=== PATIENT | female | born 1985 | race Caucasian/White ===

== ENCOUNTER 2021-07-13 12:26 | Emergency (ER) | payer OTHER ==
[2021-07-13] MEDS ORDERED: Pepcid 20 MG VIAL IV ONE ×2 (12:45→12:51)
[2021-07-13] MEDS ORDERED: PROTONIX 40 MG IV IV ONE ×2 (12:45→12:51)
[2021-07-13] MEDS ORDERED: Sodium Chloride 0.9% 1000 ML 1,000 ML IV STA (12:45)
[2021-07-13] MEDS ORDERED: Zofran 4 MG/2 ML VIAL IV ONE (12:45)
[2021-07-13 12:47] VITALS: O2SAT 98
[2021-07-13] MEDS ORDERED: Sodium Chloride 0.9% 1000 ML 1,000 ML ONE (12:51)
[2021-07-13] MEDS ORDERED: Zofran 4 MG/2 ML VIAL ONE (12:51)
--- NOTE | 2021-07-13 12:53 | ERPHSYRPT ---
- History of Present Illness Time Seen by Provider: 07/13/21 12:49 Historian: patient Exam Limitations: no limitations Patient Subjective Stated Complaint: Pt states that she has ulcers in her stomach and she began having pain about 3 days ago and began vomiting blood yest erday Triage Nursing Assessment: Pt drove self to the ER, bradycardia, rates epigastric pain as 8/10, 0.5 cm laceration to the chin from a utility knife, last vomited this AM, skin n/w/d, pulses normal, last intake 1800 yesterday, last bm around 1000 today, doesn't appear to be in any distress Physician History: c/o abdominal pain in epigastric area for 2-3 days with some blood in her vomiting. Pt states that she has ulcers in her stomach and she began having pain about 3 days ago and began vomiting blood yesterday. Patient was at [facility] emergency room where she has to wait for 3 to 4 hours because the emergency room was full so she left without being seen. While she is getting her hospital bed and she had a helga on her chin and has a very small laceration on her chin which is vertical superficial. Timing/Duration: day(s) (three days) Activities at Onset: none Quality: aching, burning Abdominal Pain Onset Location: epigastric Pain Radiation: no radiation Severity of Pain-Max: mild Severity of Pain-Current: moderate Modifying Factors: Improves With: nothing Associated Symptoms: heartburn, nausea, vomiting Allergies/Adverse Reactions: No Known Drug Allergies Allergy (Verified 07/13/21 12:47) Home Medications: Ondansetron ODT 4 MG [Zofran Odt 4 mg] 4 mg SL UD PRN 07/13/21 [History] estradioL [Estradiol] 2 mg PO DAILY 07/13/21 [History] Travel Risk - International Travel Have you traveled outside of the country in past 3 weeks: No - Coronavirus Screening Are you exhibiting any of the following symptoms?: No Close contact with a COVID-19 positive Pt in past 14-21 Days: No - Vaccine Status Have you recieved a Covid-19 vaccination: Yes [employer]: Agolo - Vaccination Dates Date of 2cond Vaccination (if applicable): 07/2021 - Review of Systems Constitutional: No Fever, No Chills Eyes: No Symptoms Ears, Nose, & Throat: No Symptoms Respiratory: No Cough, No Dyspnea Cardiac: No Chest Pain, No Edema, No Syncope Abdominal/Gastrointestinal: Abdominal Pain, Nausea, Vomiting, Hematemesis, No Diarrhea Genitourinary Symptoms: No Dysuria Musculoskeletal: No Back Pain, No Neck Pain Skin: No Rash Neurological: No Dizziness, No Focal Weakness, No Sensory Changes Psychological: No Symptoms Endocrine: No Symptoms All Other Systems: Reviewed and Negative - Past Medical History Pertinent Past Medical History: Yes GI Medical History: Ulcer Other Medical History: hepatitis A - Past Surgical History Past Surgical History: Yes Female Surgical History: Hysterectomy, Tubal Ligation Other Surgical History: tummy tuck - Social History Smoking Status: Current every day smoker Exposure to second hand smoke: Yes Drug Use: marijuana Patient Lives Alone: No - Female History Hx Now: No - Nursing Vital Signs Nursing Vital Signs: Initial Vital Signs Temperature 97.9 F 07/13/21 12:35 Pulse Rate 52 L 07/13/21 12:35 Blood Pressure 122/62 07/13/21 12:35 O2 Sat by Pulse Oximetry 98 07/13/21 12:35 Pain Scale Pain Intensity 8 - Physical Exam General Appearance: no apparent distress, alert Eye Exam: PERRL/EOMI, eyes nml inspection Ears, Nose, Throat Exam: normal ENT inspection, pharynx normal, moist mucous membranes, other (1 cm vertical superficial laceration on chin. no bleeding) Neck Exam: normal inspection, non-tender, supple, full range of motion Respiratory Exam: normal breath sounds, lungs clear, No respiratory distress Cardiovascular Exam: regular rate/rhythm, normal heart sounds Gastrointestinal/Abdomen Exam: soft, No tenderness, No mass Back Exam: normal inspection, normal range of motion, No CVA tenderness, No vertebral tenderness Extremity Exam: normal inspection, normal range of motion, pelvis stable Neurologic Exam: alert, oriented x 3, cooperative, normal mood/affect, nml cerebellar function, sensation nml, No motor deficits Skin Exam: normal color, warm, dry SpO2: 98 Procedures - Laceration/Wound Repair Left Time of Procedure: 12:53 Wound Location: face (chin) Wound Length (cm): 1 Wound's Depth, Shape: superficial Wound Explored: clean Irrigated: Yes Hibiclens Prep: Yes Wound Repaired With: Steri-strips, Dermabond - Course Nursing assessment & vital signs reviewed: Yes Ordered Tests: Active Orders 24 hr Category Date Time Status KUB Stat Exams 07/13/21 12:45 Taken AMYLASE Stat Lab 07/13/21 12:47 Completed CBC W DIFF Stat Lab 07/13/21 12:41 Completed CMP Stat Lab 07/13/21 12:47 Completed HCG,QUALITATIVE URINE Stat Lab 07/13/21 12:47 Completed LIPASE Stat Lab 07/13/21 12:47 Completed UA W/RFX UR CULTURE Stat Lab 07/13/21 12:47 Completed Medication Summary Generic Name Dose Route Start Last Admin Trade Name Freq PRN Reason Stop Dose Admin Sodium Chloride 1,000 mls @ 999 mls/hr 07/13/21 12:45 07/13/21 13:00 Sodium Chloride 0.9% 1000 Ml IV 07/13/21 13:45 999 mls/hr .Q1H1M STA Administration Discontinued Medications Generic Name Dose Route Start Last Admin Trade Name Freq PRN Reason Stop Dose Admin Famotidine 20 mg 07/13/21 12:45 07/13/21 13:00 Pepcid 20 Mg Vial IV 07/13/21 12:46 20 mg STAT ONE Administration Famotidine Confirm 07/13/21 12:51 Pepcid 20 Mg Vial Administered 07/13/21 12:52 Dose 20 mg IV .STK-MED ONE Sodium Chloride Confirm 07/13/21 12:51 Sodium Chloride 0.9% 1000 Ml Administered 07/13/21 12:52 Dose 1,000 mls @ ud .ROUTE .STK-MED ONE Ondansetron HCl 4 mg 07/13/21 12:45 07/13/21 13:00 Zofran 4 Mg/2 Ml Vial IV 07/13/21 12:46 4 mg STAT ONE Administration Ondansetron HCl Confirm 07/13/21 12:51 Zofran 4 Mg/2 Ml Vial Administered 07/13/21 12:52 Dose 4 mg .ROUTE .STK-MED ONE Pantoprazole Sodium 40 mg 07/13/21 12:45 07/13/21 13:00 Protonix 40 Mg Iv IV 07/13/21 12:46 40 mg STAT ONE Administration Pantoprazole Sodium Confirm 07/13/21 12:51 Protonix 40 Mg Iv Administered 07/13/21 12:52 Dose 40 mg IV .STK-MED ONE Lab/Rad Data: Laboratory Result Diagrams 07/13/21 12:41 07/13/21 12:47 Laboratory Results 07/13/21 07/13/21 07/13/21 Range/Units 12:47 12:47 12:47 WBC (4.0-10.5) K/mm3 RBC (4.1-5.4) M/mm3 Hgb (12.0-16.0) gm/dl Hct (35-47) % MCV (78-100) fl MCH (26-32) pg MCHC (32-36) g/dl RDW (11.5-14.0) % Plt Count (150-450) K/mm3 MPV (7.5-11.0) fl Gran % (36.0-66.0) % Eos # (Auto) (0-0.5) Absolute Lymphs (auto) (1.0-4.6) Absolute Monos (auto) (0.0-1.3) Lymphocytes % (24.0-44.0) % Monocytes % (0.0-12.0) % Eosinophils % (0.00-5.0) % Basophils % (0.0-0.4) % Absolute Granulocytes (1.4-6.9) Basophils # (0-0.4) Sodium 139 (137-145) mmol/L Potassium 4.2 (3.5-5.1) mmol/L Chloride 107 (98-107) mmol/L Carbon Dioxide 24 (22-30) mmol/L Anion Gap 11.9 (5-15) MEQ/L BUN 11 (7-17) mg/dL Creatinine 1.02 (0.52-1.04) mg/dL Estimated GFR > 60.0 ML/MIN Glucose 89 (74-106) mg/dL Calcium 9.7 (8.4-10.2) mg/dL Total Bilirubin 0.30 (0.2-1.3) mg/dL AST 22 (14-36) U/L ALT 17 (0-35) U/L Alkaline Phosphatase 61 (38-126) U/L Serum Total Protein 7.3 (6.3-8.2) g/dL Albumin 4.1 (3.5-5.0) g/dL Amylase 68 (30-110) U/L Lipase 90 (23-300) U/L Urine Color YELLOW (YELLOW) Urine Appearance CLEAR (CLEAR) Urine pH 5.0 (5-6) Ur Specific [place] 1.015 (1.005-1.025) Urine Protein NEGATIVE (Negative) Urine Ketones NEGATIVE (NEGATIVE) Urine Blood SMALL (0-5) Lauro/ul Urine Nitrite NEGATIVE (NEGATIVE) Urine Bilirubin NEGATIVE (NEGATIVE) Urine Urobilinogen NEGATIVE (0-1) mg/dL Ur Leukocyte Esterase NEGATIVE (NEGATIVE) Urine WBC (Auto) 3-5 (0-5) /HPF Urine RBC (Auto) NONE (0-2) /HPF U Epithel Cells (Auto) RARE (FEW) /HPF Urine Bacteria (Auto) NONE (NEGATIVE) /HPF Urine Mucus (Auto) SLIGHT (NEGATIVE) /HPF Urine Culture Reflexed NO (NO) Urine Glucose NEGATIVE (NEGATIVE) mg/dL Urine HCG, Qual NEGATIVE (Negative) 07/13/21 Range/Units 12:41 WBC 6.8 (4.0-10.5) K/mm3 RBC 4.30 (4.1-5.4) M/mm3 Hgb 13.2 (12.0-16.0) gm/dl Hct 41.3 (35-47) % MCV 96.0 (78-100) fl MCH 30.7 (26-32) pg MCHC 32.0 (32-36) g/dl RDW 13.5 (11.5-14.0) % Plt Count 192 (150-450) K/mm3 MPV 11.4 H (7.5-11.0) fl Gran % 57.8 (36.0-66.0) % Eos # (Auto) 0.19 (0-0.5) Absolute Lymphs (auto) 2.11 (1.0-4.6) Absolute Monos (auto) 0.52 (0.0-1.3) Lymphocytes % 31.3 (24.0-44.0) % Monocytes % 7.7 (0.0-12.0) % Eosinophils % 2.8 (0.00-5.0) % Basophils % 0.4 (0.0-0.4) % Absolute Granulocytes 3.90 (1.4-6.9) Basophils # 0.03 (0-0.4) Sodium (137-145) mmol/L Potassium (3.5-5.1) mmol/L Chloride (98-107) mmol/L Carbon Dioxide (22-30) mmol/L Anion Gap (5-15) MEQ/L BUN (7-17) mg/dL Creatinine (0.52-1.04) mg/dL Estimated GFR ML/MIN Glucose (74-106) mg/dL Calcium (8.4-10.2) mg/dL Total Bilirubin (0.2-1.3) mg/dL AST (14-36) U/L ALT (0-35) U/L Alkaline Phosphatase (38-126) U/L Serum Total Protein (6.3-8.2) g/dL Albumin (3.5-5.0) g/dL Amylase (30-110) U/L Lipase (23-300) U/L Urine Color (YELLOW) Urine Appearance (CLEAR) Urine pH (5-6) Ur Specific [place] (1.005-1.025) Urine Protein (Negative) Urine Ketones (NEGATIVE) Urine Blood (0-5) Lauro/ul Urine Nitrite (NEGATIVE) Urine Bilirubin (NEGATIVE) Urine Urobilinogen (0-1) mg/dL Ur Leukocyte Esterase (NEGATIVE) Urine WBC (Auto) (0-5) /HPF Urine RBC (Auto) (0-2) /HPF U Epithel Cells (Auto) (FEW) /HPF Urine Bacteria (Auto) (NEGATIVE) /HPF Urine Mucus (Auto) (NEGATIVE) /HPF Urine Culture Reflexed (NO) Urine Glucose (NEGATIVE) mg/dL Urine HCG, Qual (Negative) - Progress Progress: improved Counseled pt/family regarding: diagnosis, need for follow-up - Departure Departure Disposition: Home Clinical Impression: GERD with esophagitis Qualifiers: Esophagitis bleeding: with hemorrhage Qualified Code(s): K21.01 - Gastro- esophageal reflux disease with esophagitis, with bleeding Condition: Stable Critical Care Time: No Referrals: JESSE TEJADA NP [Primary Care Provider] - Follow Up with PCP/3 days Instructions: Acid Reflux and GERD in Adults (DC) Additional Instructions: Discharge/Care Plan MILLY SALINAS was seen on 07/13/21 in the Emergency Room. The patient was cou nseled regarding Diagnosis,Lab results, Imaging studies, need for follow up and when to return to the Emergency Room. Prescriptions given: Discharge Note I have spoken with the patient and/or caregivers. I have explained the patient's condition, diagnosis and treatment plan based on the information available to me at this time. I have answered the patient's and/or caregiver's questions and addressed any concerns. The patient and/or caregivers have as good understanding of the patient's diagnosis, condition and treatment plan as can be expected at this point. The vital signs have been stable. The patient's condition is stable and appropriate for discharge from the emergency department. The patient will pursue further outpatient evaluation with the primary care physician or other designated or consulting physician as outlined in the discharge instructions. The patient and/or caregivers are agreeable to this plan of care and follow-up instructions have been explained in detail. The patient and/or caregivers have received these instruction. The patient/and or caregivers are aware that any significant change in condition or worsening of symptoms should prompt an immediate return to this or the closest emergency department or call 911. MILLY SALINAS was seen on 07/13/21 n the Emergency Room. At that time you were treated for an emergent condition, during your visit Laboratory, Radiology and/or other procedures may have been ordered. It is very important that you follow-up with your Primary Care Physician JESSE TEJADA NP within the next 24-48 hours to review your Emergency Room visit and the final results of testing that was ordered. Some test results such as Urine Cultures, Blood Cultures, and other cultures if ordered will not be finalized for 24-48 hours. If you do not have a Primary Care Provider please call the medical records department at [phone] to obtain a copy of your results or you may sign into our patient portal to obtain these results by visiting us @ [email or web address] and completing the following steps: 1. Click on the Patient Portal link 2. Click the Patient Self Enrollment Link to complete the enrollment form and entering your 3. Once the enrollment form is completed you will receive an email with a temporary ID and password at the email address you provided. 4. Next choose a user name and password. Your user name must be at least 4 characters long and your password must be at least 4 characters long. 5. Choose a security question from the list and provide your answer to the question. If you already have signed into the Health Portal you may access your Health Care Information 18/05 by the following steps: 1. Login to our website @ [email or web address] 2. Enter your original user name and password. FAQS The [facility] Health Portal is an online tool that contains your Lab Results, Radiology Reports, Visit History, Discharge Instructions and Health Summary Lab and Radiology Results will not be available for 72 hours on the portal. The Portal is a secure site, passwords are encryted and URLs are re-written so they cannot be copied and pasted. You and authorized family members are the only ones who can access your Portal. Also there is a timeout feature that protects your information if you leave the Portal page open. If you have technical difficulty please use the Contact Us link on the page this will allow you to submit any questions you have regarding the Portal or you may contact the Medical Record Department at [phone]. Prescriptions: Famotidine 20 mg [Pepcid 20 MG] 20 mg PO BID #60 tablet PANTOPRAZOLE 40 mg Tablet [Protonix 40MG Tablet] 40 mg PO QPM #30 tab
[2021-07-13 12:58] LABS: Appearance CLEAR (CLEAR); Bilirubin NEGATIVE (NEGATIVE); Blood SMALL Ery/ul (0-5); Epithelial Cells RARE /HPF (FEW); Glucose NEGATIVE (NEGATIVE); Ketones NEGATIVE (NEGATIVE); Leukocyte Esterase NEGATIVE (NEGATIVE); Mucus SLIGHT /HPF (NEGATIVE); Nitrite NEGATIVE (NEGATIVE); Protein,Urine Dip NEGATIVE (Negative); Specific Gravity 1.015 (1.005-1.025); Urobilinogen NEGATIVE mg/dL (0-1)
[2021-07-13 12:58] LABS: BASOPHIL % 0.4 % (0.0-0.4); Basophil (Absolute #) 0.03 (0-0.4); Eosinophil % 2.8 % (0.00-5.0); Eosinophil (Absolute #) 0.19 (0-0.5); Hematocrit 41.3 % (35-47); Hemoglobin 13.2 gm/dl (12.0-16.0); Lymphocyte (Absolute #) 2.11 (1.0-4.6); Lymphocytes % 31.3 % (24.0-44.0); Mean Corpuscular Hemoglobin 30.7 pg (26-32); Mean Platelet Volume 11.4 fl (7.5-11.0); Monocyte (Absolute #) 0.52 (0.0-1.3); Monocytes % 7.7 % (0.0-12.0); Neutrophil % 57.8 % (36.0-66.0); Platelet Count 192 K/mm3 (150-450); Red Cell Distribution Width 13.5 % (11.5-14.0); White Blood Count 6.8 K/mm3 (4.0-10.5)
[2021-07-13 13:06] LABS: ALBUMIN 4.1 g/dL (3.5-5.0); ALKALINE PHOSPHATASE 61 U/L (38-126); AMYLASE 68 U/L (30-110); ANION GAP 11.9 MEQ/L (5-15); BLOOD UREA NITROGEN 11 mg/dL (7-17); CHLORIDE 107 mmol/L (98-107); Calcium 9.7 mg/dL (8.4-10.2); Carbon Dioxide 24 mmol/L (22-30); Creatinine 1 1.02 mg/dL (0.52-1.04); EST GLOMERULAR FILTRATION RATE > 60.0 ML/MIN; Glucose 89 mg/dL (74-106); LIPASE 90 U/L (23-300); Potassium 4.2 mmol/L (3.5-5.1); SGOT/AST 22 U/L (14-36); SGPT/ALT 17 U/L (0-35); SODIUM 139 mmol/L (137-145); Total Protein 7.3 g/dL (6.3-8.2)
[2021-07-13 13:30] VITALS: BP 111/58; PULSE 45
[2021-07-13] MEDS ORDERED: MAALOX ES 30 ML UNIT DOSE ONE (13:40)
[2021-07-13] MEDS ORDERED: XYLOCAINE HCl Viscous ONE (13:40)
[2021-07-13] MEDS ORDERED: GI COCKTAIL 45 ML (Maalox/Lidocaine) PO ONE (13:48)
--- NOTE | 2021-07-13 17:26 | XRAY ---
Indication: Pain. History of ulcers. Comparison: None KUB nonacute and nonobstructed. Solid organs and osseous structures unremarkable.
== END 2021-07-13 13:49 | disposition home or self-care (01) ==
LOC: ED 12:26
DX: K21.01 Gastro-esophageal reflux disease with esophagitis, with bleeding (principal); S01.81XA Laceration without foreign body of other part of head, initial encounter; W26.0XXA Contact with knife, initial encounter; R10.13 Epigastric pain; R12 Heartburn; R11.2 Nausea with vomiting, unspecified; Z79.899 Other long term (current) drug therapy
CPT/HCPCS: 12011; 36000; 36415; 74018; 80053; 81001; 82150; 83690; 84703; 85025; 96374; 96375; 99284; J2405; A9270-GY